=== PATIENT | male | born 1950 | race Caucasian/White ===

== ENCOUNTER 2020-11-19 11:32 | Emergency (ER) | payer MEDICARE, SELFPAY ==
[2020-11-19 11:47] VITALS: BP 157/107; PULSE 68; RESP 16; TEMP 37.1; O2SAT 100
[2020-11-19 11:50] VITALS: BP 157/107; PULSE 68; RESP 16; TEMP 37.1; O2SAT 100
--- NOTE | 2020-11-19 11:55 | ED.WOUNDLAC ---
HPI - Wound/Laceration General Chief Complaint: Wound/Laceration Stated Complaint: rt hand wound Source: patient and RN notes reviewed Limitations: no limitations History of Present Illness HPI narrative: The patient, who is a right-handed retiree with immunizations UTD, presents with right hand wound check. Patient states a week ago he scraped his hand on a log resulting in a laceration on the extensor aspect of his right, ring finger MCP J area . He notes his had him come get checked, because it keeps reopening with movement; symptoms are mild better with extension and worse with activity. No fever, weakness, numbness, redness, pain but there is occasional yellowish discharge; Patient advised on splinting and wound care Related Data Allergies Allergy/AdvReac Type Severity Reaction Status Date / Time No Known Allergies Allergy Verified 11/19/20 11:49 Review of Systems Review of Systems: General/Constitutional: No weight loss,fever Eyes: N0: Redness,discharge Ears/Nose/Throat: No: Epistaxis,ear discharge Respiratory: Denies: Hemoptysis Gastrointestinal: No Vomiting, Bleeding-rectal Skin: No Lumps, eruption PMFSH Comments At time of signature, agree with nursing past medical, surgical, social and family history. There is no relevant family history pertinent to the presenting complaint Exam Narrative: The patient has been informed that they may have pre-hypertension or Hypertension based on a BP reading in the department. I recommend that the patient call the primary care provider listed on their discharge instructions or a physician of their choice this week to arrange follow up for further evaluation of possible pre-hypertension or Hypertension General Appearance: Well appearing, conjunctiva clear Mouth/Throat: Normal appearing, Normal lips, Supple Respiratory: Airway patent, No respiratory distress Skin: Warm, Dry, Normal color; patient has healing poorly approximated, 1 cm superficial dermal laceration of ring MCP MS-finger: Normal strength (mostly intact, limited flexion/extension by pain), no tenderness ( without decreased ROM), Swelling (, Other (no anterior drawer, no collateral laxity) Neurological: A&O x3, Speech clear, CN II-XII intact Psychiatric: Normal mood, Normal affect Course Vital Signs Vital signs: Vital Signs Temperature 98.8 F 11/19/20 11:47 Pulse Rate 68 11/19/20 11:47 Respiratory Rate 16 11/19/20 11:47 Blood Pressure 157/107 H 11/19/20 11:47 Pulse Oximetry 100 11/19/20 11:47 Temperature 98.8 F 11/19/20 11:50 Pulse Rate 68 11/19/20 11:50 Respiratory Rate 16 11/19/20 11:50 Blood Pressure 157/107 H 11/19/20 11:50 Pulse Oximetry 100 11/19/20 11:50 Discharge Plan Discharge Clinical Impression: Encounter for post-traumatic wound check, Hx of laceration of skin Patient Disposition: Home, Self-Care Condition: Stable Instructions: Laceration Without Closure (ED) Additional Instructions: Discussed plan to tape and splint, for example using cynthia taping at night and boxers splint during the day Prescriptions: New mupirocin 2 % ointment 1 applic TOPICAL TID Qty: 30 RF: 0 cephalexin 500 mg tablet 1,000 mg PO Q12H 3 Days Qty: 12 RF: 0 Follow-up/Referrals: UNKNOWN,DOCTOR [Primary Care Provider] -
== END 2020-11-19 12:00 | disposition home or self-care (01) ==
PROVIDERS: Emergency Provider Emergency Medicine
DX: S61.411A Laceration without foreign body of right hand, initial encounter (principal); W22.8XXA Striking against or struck by other objects, initial encounter; I10 Essential (primary) hypertension
CPT/HCPCS: 99213; G0463

== ENCOUNTER 2023-05-15 08:31 | Outpatient (CLI) | payer MEDICARE, SELFPAY ==
[2023-05-15 14:25] LABS: Basophils Percent Auto 0.4 % (0.2-1.2); Eosinophils Absolute Auto 0.2 K/mm3 (0-0.3); Eosinophils Percent Auto 2.5 % (0-4.4); Hematocrit 54.7 % (42.0-52.0); Hemoglobin 17.9 g/dL (14.0-18.0); Immature Granulocyte Absolute 0.01 K/mm3 (0.00-0.031); Immature Granulocyte Percent A 0.1 % (0-0.5); Lymphocytes Absolute Auto 2.42 K/mm3 (0.9-3.2); Lymphocytes Percent Auto 35.8 % (18.3-44.2); Mean Corpuscular HGB Conc 32.7 g/dl (32-36); Mean Corpuscular Hemoglobin 29.4 pg (26-34); Mean Corpuscular Volume 89.8 fl (80-100); Mean Platelet Volume 10.5 fl (7.4-10.4); Monocytes Absolute Auto 0.6 K/mm3 (0.1-0.6); Monocytes Percent Auto 8.7 % (2.6-8.5); Neutrophils Absolute Auto 3.5 K/mm3 (1.3-6.7); Neutrophils Percent Auto 52.5 % (45.5-73.1); Platelet Count Result 207 k/mm3 (150-375); Red Blood Count 6.09 M/mm3 (4.6-6.20); Red Cell Distribution Width 13.2 % (11.5-14.5); White Blood Count 6.8 K/mm3 (4.5-10.0)
[2023-05-15 14:59] LABS: Vitamin D 25 Hydroxy 52.7 ng/mL
[2023-05-15 15:05] LABS: Alanine Aminotransferase 25 U/L (6-50); Albumin Level 4.4 g/dL (3.5-5.1); Alkaline Phosphatase 78 U/L (38-126); Anion Gap 9 mmol/L (8-16); Aspartate Amino Transferase 54 U/L (17-59); Bilirubin,Total 0.8 mg/dL (0.2-1.3); Blood Urea Nitrogen 21 mg/dL (9-20); Calcium 9.8 mg/dL (8.4-10.2); Carbon Dioxide 33 mmol/L (22-30); Chloride 97 mmol/L (98-107); Cholesterol 252 mg/dL (0-200); Estimated Glomerular Filt Rate > 60; Glucose 76 mg/dL (65-110); HDL Direct 36 mg/dL; Potassium 5.3 mmol/L (3.4-5.0); Sodium 139 mmol/L (137-145); Triglycerides 170 mg/dL (<150)
[2023-05-15 15:21] LABS: LDL Cholesterol Direct 161 mg/dL
[2023-05-15 15:28] LABS: Prostate Specific Antigen 0.4 ng/mL (< OR = 4.0)
[2023-05-21 17:31] LABS: Factor V (Leiden) Mutation POSITIVE
== END 2023-05-15 08:32 | disposition home or self-care (01) ==
PROVIDERS: PCP Family Medicine; Visit Provider Family Medicine
DX: Z12.5 Encounter for screening for malignant neoplasm of prostate (principal); E78.5 Hyperlipidemia, unspecified; E53.8 Deficiency of other specified B group vitamins; E55.9 Vitamin D deficiency, unspecified; Z79.899 Other long term (current) drug therapy; Z13.29 Encounter for screening for other suspected endocrine disorder; Z83.2 Family history of diseases of the blood and blood-forming organs and certain disorders involving the immune mechanism
CPT/HCPCS: 36415; 80053; 80061; 81241; 82306; 82607; 84153; 84443; 85025; G0103

== ENCOUNTER 2024-04-07 08:46 | Outpatient (CLI) | payer MEDICARE, SELFPAY ==
[2024-04-07 19:51] LABS: Prostate Specific Antigen 0.4 ng/mL (< OR = 4.0)
[2024-04-07 22:14] LABS: Anion Gap 5 mmol/L (4-12); Blood Urea Nitrogen 20 mg/dL (9-20); Calcium 9.6 mg/dL (8.4-10.2); Carbon Dioxide 32 mmol/L (22-30); Chloride 100 mmol/L (98-107); Estimated Glomerular Filt Rate > 60; Glucose 52 mg/dL (65-110); Potassium 4.7 mmol/L (3.4-5.0); Sodium 137 mmol/L (137-145)
[2024-04-09 12:47] LABS: Homocysteine 16.3 umol/L (<11.4)
== END 2024-04-07 08:47 | disposition home or self-care (01) ==
LOC: ANHGOSHLAB 08:47
PROVIDERS: PCP Family Medicine; Visit Provider Family Medicine
DX: E78.5 Hyperlipidemia, unspecified (principal); E87.5 Hyperkalemia; Z12.5 Encounter for screening for malignant neoplasm of prostate
CPT/HCPCS: 36415; 80048; 83090; 84153; G0103

== ENCOUNTER 2024-06-17 00:24 | Day surgery (SDC) | payer MEDICARE, SELFPAY ==
[2024-06-09 13:51] VITALS: BMI 25.1
--- OUTSIDE RECORDS SUMMARY | 2024-06-17 00:27 | XMS_ITS | Clinical Summary ---
Author Organization [facility] Address [address] [place] [address] Care Team Providers Care Front Desk Name Role Phone Rosamaria Reyes MD Primary Care Provider Medications omega-3 fatty acids-fish oil 300-1,000 mg Capsule Take by mouth daily. Active Vit C-Vit Z-Jpjkuq-TwYg-L utein (PRESERVISION) 226-90-0.8-5 mg Capsule Take 1 Capsule by mouth daily. Active Apple Cider Vinegar 300 mg Tablet Take by mouth. Active Garlic Tablet Take by mouth. Active aspirin (ECOTRIN EC) 81 mg Tablet, Delayed Release (E.C.) Take 81 mg by mouth daily. Active BRADY ROOT EXTRACT ORAL Take by mouth. Active Active Problems No known active problems Encounters Date Type Department Care Team Description 05/20/2024 External Device Data [facility] Provider, Abstract 05/14/2024 External Device Data [facility] Provider, Abstract 05/13/2024 External Device Data [facility] Provider, Abstract 05/07/2024 External Device Data [facility] Provider, Abstract 04/10/2024 Orders Only [facility] [place] [address] [place] [address] Moises Umana MD 04/08/2024 Orders Only [facility] [place] [address] [place] [address] Moises Umana MD from Last 3 Months Family History Medical History Relation Name Comments Melanoma Mother Relation Name Status Comments Daughter Alive Father Mother Sister 1 Sister 2 Alive Son Alive Social History Tobacco Use Types Packs/Day Years Used Date Smoking Tobacco: Never Smokeless Tobacco: Never Tobacco Cessation:Counseling Given: Not Answered Alcohol Use Standard Drinks/Week Comments Never 0 (1 standard drink = 0.6 oz pur e alcohol) Sex and Gender Information Value Date Recorded Sex Assigned at Not on file Legal 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 Gender Identity Not on file Sexual Orientation Not on file Last Filed Vital Signs Vital Sign Reading Time Taken Comments Blood Pressure 136/84 07/03/2023 3:08 PM CDT Pulse 58 07/03/2023 3:05 PM CDT Temperature 36.2 C (97.2 F) 07/03/2023 3:05 PM CDT Respiratory Rate 14 07/03/2023 3:05 PM CDT Oxygen Saturation 96% 07/03/2023 3:05 PM CDT Inhaled Oxygen Concentration - - Weight 81.6 kg (180 lb) 07/03/2023 3:05 PM CDT Height 180.3 cm (5' 11 ) 07/03/2023 3:05 PM CDT Body Mass Index 25.1 07/03/2023 3:05 PM CDT Plan of Treatment Health Maintenance Due Date Last Done Comments DTAP/TDAP/TD VACCINES (1 - Tdap) 1969 COLORECTAL SCREENING 12/30/1995 Colorectal Cancer Screening 12/30/1995 FIT-DNA Q 3 years 12/30/1995 FIT/FOBT Q 1 year 12/30/1995 Flex Sig/CT Colonography Q 5 years 12/30/1995 PNEUMOCOCCAL VACCINE 65+ YEARS (1 of 1 - PCV) 12/30/19 ZOSTER VACCINE (1 of 2) 2000 INFLUENZA VACCINE (#1) 2023 RSV VACCINE (60+ or ) (1 - 1-dose 75+ series) 2025 Procedures Procedure Name Priority Date/Time Associated Diagnosis Comments HOMOCYSTEINE Routine 04/10/2024 9:22 AM DIALYSIS NURSE BASIC METABOLIC PANEL Routine 04/07/2024 1:33 PM DIALYSIS NURSE from Last 3 Months Results * HOMOCYSTEINE (04/10/2024 9:22 AM DIALYSIS NURSE) Blood us Moises Umana MD CHEMISTRY ORDERABLES Final Resu lt * BASIC METABOLIC PANEL (04/07/2024 1:33 PM DIALYSIS NURSE) Blood Moises Umana MD CHEMISTRY ORDERABLES Final Resu lt from Last 3 Months Insurance [facility] Address: [facility] [id number] [place] [id number] Care Teams Front Desk Relationship Specialty Start Date End Date Rosamaria Reyes MD [address] [place] [address] PCP - General Family Practice 05/25/23
[2024-06-17 07:37] VITALS: BP 133/87; PULSE 67; RESP 17; TEMP 36.2; O2SAT 99; BMI 25.0
[2024-06-17] MEDS: LACTATED RINGERS 1,000 ML 150 ML IV CONT (07:45)
--- NOTE | 2024-06-17 08:01 | WPDANESEPPF ---
Anes - Initial Pre Proc Eval Procedure: Operation Date: 06/17/24 09:15 Proposed Procedures p Screening Colonoscopy - Severino Schofield MD Date/Time: 06/17/24 08:01 Surgeon: Severino Schofield MD Pre Op Diagnosis: screening colon Patient Data Age: 73 Gender: M Height: 1.78 m Weight: 79.3 kg Last Vital Signs Temp 36.2 C L 06/17/24 07:37 Pulse 67 06/17/24 07:37 Resp 17 06/17/24 07:37 BP 133/87 06/17/24 07:37 Pulse Ox 99 06/17/24 07:37 O2 Del Method Room Air 06/17/24 07:37 Allergies Allergy/AdvReac Type Severity Reaction Status Date / Time No Known Allergies Allergy Verified 06/17/24 07:37 Home Medications ?Medication ?Instructions ?Recorded ?Confirmed ?Type cholecalciferol (vitamin D3) 25 25 mcg PO DAILY 10/30/22 06/09/24 History mcg (1,000 unit) capsule garlic 500 mg capsule 500 mg PO DAILY 10/30/22 06/09/24 History omega 2-kvt-kfz-fish oil 1,000 mg 1 cap PO DAILY 10/30/22 06/09/24 History (120 mg-180 mg) capsule (Fish Oil) vitamins A,C,K-pidq-zbljcq 4,296 1 cap PO DAILY 10/30/22 06/09/24 History mcg-226 mg-90 mg capsule (PreserVision AREDS) atorvastatin 20 mg tablet (Lipitor) 20 mg PO QHS #90 tabs 05/15/23 06/09/24 Rx alfalfa 405 mg capsule 350 mg PO DAILY 03/17/24 06/09/24 History apple cider vinegar 300 mg tablet 450 mg PO DAILY 03/17/24 06/09/24 History cinnamon bark 500 mg capsule 500 mg PO DAILY 03/17/24 06/09/24 History (Cinnamon) coenzyme Q10 100 mg capsule 200 mg PO DAILY 03/17/24 06/09/24 History (CoQ-10) cranberry extract 500 mg tablet 500 mg PO BID 03/17/24 06/09/24 History flaxseed oil 1,000 mg capsule 1,200 mg PO DAILY 03/17/24 06/09/24 History garlic 1,000 mg capsule 1,000 mg PO DAILY 03/17/24 06/09/24 History raghu root extract 50 mg tablet 550 mg PO DAILY 03/17/24 06/09/24 History turmeric root extract 500 mg 500 mg PO DAILY 03/17/24 06/09/24 History capsule L.acidophil-L.casei-B.bifid-B.longum-FOS 1 cap PO DAILY 06/09/24 06/09/24 History 2 billion cell-50 mg capsule (Probiotic Blend) Patient hx anesthesia problems: none Family hx anesthesia problems: none Results Review: All pre-operative results and documents have been reviewed as part of the pre-operative evaluation. [facility] Past Medical History Medical History (Updated 03/17/24 @ 13:45 by Jorge Johnson MD) Detached retina, right Factor 5 Leiden mutation, heterozygous Dyslipidemia Family history of factor V deficiency Surgical History Surgical History History of tonsillectomy (~1955) History of detached retina repair (~2009) Family History Family History Mother Melanoma Cerebrovascular accident Sibling Liver cancer Grandparent Heart disease Social History Social History Smoking status: Never smoker Alcohol intake: never Substance use: never Substance use type: does not use Lack of Transportation: No Lack of Food: Never True Current Housing: I Have Housing Concerned About Future Housing: No Difficulty Paying Gas/Electric Bills: No Difficulty Paying for Meds: No Currently Unemployed: No Education: Master's Degree or Higher Difficulty w/ Childcare or Family Care: No Living arrangements: with family Additional living arrangements comments: Occupation/Education: retired Gender identity (if verbalized by the patient): Male Sexual Orientation (if Verbalized by the Patient): Straight or Heterosexual Spiritual care concerns: No Agree to blood products: Yes Anes - Eval Final PreProcedure Day of Procedure 06/17/24 08:01 Patient weight: overweight Heart: regular rate and rhythm Lungs: clear to auscultation Airway: Mallampati scale class II Neurological: alert and oriented Last oral intake: >/= 8 hours ASA classification: III Emergent: no Anesthetic plan: proceed Anesthesia type and monitoring: general GIVS and standard monitoring Results Review: All pre-operative results and documents have been reviewed as part of the pre-operative evaluation. Informed Consent: The patient's anesthetic plan and its attendant risks and benefits were discussed with the patient/family/POA. Questions were solicited and answers provided to the satisfaction of the patient/family/POA.
--- NOTE | 2024-06-17 09:11 | PM.IMHP ---
H&P: HPI History of Present Illness Date/Time: 06/17/24 09:11 Chief Complaint: Screening colonoscopy Narrative: This is the patient's 2nd colonoscopy after more than 15 years.. There are no GI symptoms and there is no family history of colorectal cancer. Review of Systems Review of Systems: All systems reviewed & are unremarkable except as noted in HPI and below PMFSH Past Medical History Medical History (Updated 03/17/24 @ 13:45 by Jorge Johnson MD) Detached retina, right Factor 5 Leiden mutation, heterozygous Dyslipidemia Family history of factor V deficiency Surgical History Surgical History History of tonsillectomy (~1955) History of detached retina repair (~2009) Family History Family History Mother Melanoma Cerebrovascular accident Sibling Liver cancer Grandparent Heart disease Social History Social History Smoking status: Never smoker Alcohol intake: never Substance use: never Substance use type: does not use Lack of Transportation: No Lack of Food: Never True Current Housing: I Have Housing Concerned About Future Housing: No Difficulty Paying Gas/Electric Bills: No Difficulty Paying for Meds: No Currently Unemployed: No Education: Master's Degree or Higher Difficulty w/ Childcare or Family Care: No Living arrangements: with family Additional living arrangements comments: Occupation/Education: retired Gender identity (if verbalized by the patient): Male Sexual Orientation (if Verbalized by the Patient): Straight or Heterosexual Spiritual care concerns: No Agree to blood products: Yes Meds Home Medications and Allergies Home Medications ?Medication ?Instructions ?Recorded ?Confirmed ?Type cholecalciferol (vitamin D3) 25 25 mcg PO DAILY 10/30/22 06/09/24 History mcg (1,000 unit) capsule garlic 500 mg capsule 500 mg PO DAILY 10/30/22 06/09/24 History omega 9-qrh-igd-fish oil 1,000 mg 1 cap PO DAILY 10/30/22 06/09/24 History (120 mg-180 mg) capsule (Fish Oil) vitamins A,C,M-cntc-parhun 4,296 1 cap PO DAILY 10/30/22 06/09/24 History mcg-226 mg-90 mg capsule (PreserVision AREDS) atorvastatin 20 mg tablet (Lipitor) 20 mg PO QHS #90 tabs 05/15/23 06/09/24 Rx alfalfa 405 mg capsule 350 mg PO DAILY 03/17/24 06/09/24 History apple cider vinegar 300 mg tablet 450 mg PO DAILY 03/17/24 06/09/24 History cinnamon bark 500 mg capsule 500 mg PO DAILY 03/17/24 06/09/24 History (Cinnamon) coenzyme Q10 100 mg capsule 200 mg PO DAILY 03/17/24 06/09/24 History (CoQ-10) cranberry extract 500 mg tablet 500 mg PO BID 03/17/24 06/09/24 History flaxseed oil 1,000 mg capsule 1,200 mg PO DAILY 03/17/24 06/09/24 History garlic 1,000 mg capsule 1,000 mg PO DAILY 03/17/24 06/09/24 History raghu root extract 50 mg tablet 550 mg PO DAILY 03/17/24 06/09/24 History turmeric root extract 500 mg 500 mg PO DAILY 03/17/24 06/09/24 History capsule L.acidophil-L.casei-B.bifid-B.longum-FOS 1 cap PO DAILY 06/09/24 06/09/24 History 2 billion cell-50 mg capsule (Probiotic Blend) Allergies Allergy/AdvReac Type Severity Reaction Status Date / Time No Known Allergies Allergy Verified 06/17/24 07:37 Vital Signs Vital Signs - 24 hr 06/17/24 07:37 Temperature 97.2 F L Pulse Rate 67 Respiratory Rate 17 Blood Pressure 133/87 Pulse Oximetry 99 Oxygen Delivery Room Air Exam Const: General: cooperative and healthy appearing Resp: Effort & Inspection: normal respiratory effort and able to speak in complete sentences Auscultation: clear to auscultation bilaterally Cardio: Rate: regular rate Rhythm: regular rhythm GI: Inspection: normal to inspection GI Palp: No No hepatosplenomegaly present Auscultation: normal bowel sounds Rectal Exam: deferred Skin: General skin exam: normal color Psych: Appearance: grossly normal Mental Status: mental status grossly normal Assessment and Plan Assessment and plan (1) Colon cancer screening: Code(s): Z12.11 - Encounter for screening for malignant neoplasm of colon Status: Acute Assessment and Plan: The patient is deemed a good candidate for the procedure. Consent signed. Will proceed.
[2024-06-17 09:53] VITALS: BP 109/61; PULSE 51; RESP 13; O2SAT 100
[2024-06-17 10:03] VITALS: BP 112/62; PULSE 50; RESP 13; O2SAT 100
[2024-06-17 10:13] VITALS: BP 134/60; PULSE 50; RESP 14; O2SAT 100
== END 2024-06-17 10:16 | disposition home or self-care (01) ==
PROVIDERS: PCP Family Medicine; Referring Provider Family Medicine; Visit Provider Internal Medicine Gastroenterology
PROC: 0DJD8ZZ Inspection of Lower Intestinal Tract, Via Natural or Artificial Opening Endoscopic (ICD-10-PCS; CPT 45378; principal; 2024-06-17 09:15)
DX: Z12.11 Encounter for screening for malignant neoplasm of colon (principal); E78.5 Hyperlipidemia, unspecified; D68.51 Activated protein C resistance; Z98.890 Other specified postprocedural states; Z80.8 Family history of malignant neoplasm of other organs or systems; Z80.0 Family history of malignant neoplasm of digestive organs; Z82.49 Family history of ischemic heart disease and other diseases of the circulatory system
CPT/HCPCS: G0105; J2003; J2704; J7120